=== PATIENT | male | born 1990 | race Caucasian/White ===

== ENCOUNTER 2021-08-21 09:48 | Emergency (ER) | payer OTHER, SELFPAY ==
[2021-08-21] MEDS ORDERED: Xylocaine 1% w/ Epi 1:100K 10 ML VIAL ONE (11:55)
== END 2021-08-21 13:20 | disposition home or self-care (01) ==
LOC: ERS 09:48
DX: S81.812A Laceration without foreign body, left lower leg, initial encounter (principal); V47.5XXA Car driver injured in collision with fixed or stationary object in traffic accident, initial encounter
CPT/HCPCS: 12002